=== PATIENT | male | born 1950 | race Caucasian/White ===

== ENCOUNTER → 2017-07-13 | Outpatient (CLI) | payer MEDICARE ==
--- NOTE | 2017-07-13 12:54 | CT ---
EXAMINATION TYPE: CT hip LT wo con DATE OF EXAM: 07/13/2017 COMPARISON: NONE HISTORY: Left hip pain x3 weeks. No prior. Scanned by LS and CS. CT DLP: 577 mGycm Automated exposure control for dose reduction was used. FINDINGS: Axial, sagittal, coronal and 3-D reconstruction images are submitted. There is metallic seeds within the prostate gland. 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 Cystic lesion involving the neck of the humerus likely related to her niation. No acute fracture. No erosive changes. Incidental note made of an inguinal hernia containing peritoneal fat. Vascular calcifications are seen. No destructive or sclerotic lesion seen to suggest metastases. No diagnostic evidence of osteonecrosi s. IMPRESSION: OSTEOARTHRITIS.
--- NOTE | 2017-07-13 17:19 | NM ---
EXAMINATION TYPE: NM bone scan whole body DATE OF EXAM: 07/13/2017 COMPARISON: NONE HISTORY: 67 year-old male left hip pain, history of prostate cancer Technique: Delayed whole-body scanning was performed following the injection of 27.1 mCi Tc 99m MDP. Images acquired 3.25 hours post injection. FINDINGS: There is extensive radiotracer activity at the right greater than left knees. Additional tracer activ ity at both shoulders, sternoclavicular joints, left first MTP joint, posterior elements of the lower thoracic spine, and the right mid cervical spine. No suspicious accumulation of tracer activity to s uggest osseous metastatic disease. There is mild increased tracer activity at the left hip. IMPRESSION: 1. Mild increased tracer activity at the left hip. Suspect underlying osteoarthrosis. 2. Additional degenerative tracer activity as mentioned above, most extensive within the right knee.
== END ==
LOC: RADNMMAIN 10:36
PROVIDERS: ATTEND Orthopaedic Surgery
DX: M16.12 Unilateral primary osteoarthritis, left hip (principal)
CPT/HCPCS: 73700; 78306; A9503